=== PATIENT | male | born 1945 | race Caucasian/White ===

== ENCOUNTER 2019-07-17 09:18 | Outpatient (CLI) | payer OTHER, SELFPAY ==
--- NOTE | 2019-07-17 09:24 | MR_ITS ---
WS: [id number] MRI LUMBAR SPINE NONCONTRAST TECHNIQUE: Sagittal T1, T2 and STIR imaging. Axial T1 and T2 imaging. CLINICAL INFORMATION: LEFT SCIATICA, WORSENING SCIATICA COMPARISON: MRI October 04, 2017 FINDINGS: Mild lumbar curve. No acute compression. Pedicle screw fixation L3-S1. Interbody fusion L3-L4, L4-L5. Endplate edema likely due to degenerative changes at L2-3. This is progressed since 2018 with progre ssed disc desiccation at this level. L1-L2: Mild disc bulging with osteophytic ridging. Narrowing of the right subarticular recess. Mild c entral canal stenosis. Mild facet arthropathy. Moderate right and mild left foraminal narrowing. L2-L3: Disc desiccation. Disc bulging with osteophytic ridging and moderate facet arthropathy. Ligame nt flavum hypertrophy. Moderate central canal stenosis. Moderate bilateral foraminal narrowing. L3-L4: Prior postoperative changes pedicle screw fixation with laminectomy defects. Mild to moderate bilateral foraminal narrowing left greater than right. Spinal canal is patent. L4-L5: Prior postoperative changes pedicle screw fixation with interbody fusion. Spinal canal is marie nt. Mild right foraminal narrowing. L5-S1: Postoperative changes pedicle screw fixation. Spinal canal is patent. Mild bony foraminal narr owing. Central canal stenosis at L2-3 appears less severe compared to 2018. MR/MR lumbar spine wo con* [id number] IMPRESSION: 1. Prior postoperative changes pedicle screw fixation L3-S1 with interbody fus ion grafts. Alignment appears unchanged since 2018. 2. Progressed disc desiccation L2-3 with endplate edema likely degenerative. M oderate central canal stenosis at this level appears slightly improved compared to 2018 3. Mild central canal stenosis L1-2 with impingement right subarticular recess . 4. Pedicle screw fixation L3-S1 with interbody fusion L3-L4 and L4-L5. Decompr essive laminectomies L3-L5. 5. Moderate multilevel bony foraminal narrowing more prominent at right L1-2, bilateral L2-3, right L3-4 and right L4-5.
--- NOTE | 2019-07-17 11:57 | XR_ITS ---
WS: [id number] LUMBAR SPINE TECHNIQUE: 3 views of the lumbar spine CLINICAL INFORMATION: SCIATICA COMPARISON: None. FINDINGS: Moderate spondylitic changes. Mild lumbar curve convex right. Prior postoperative changes pedicle scr ew fixation L3-S1 with interconnecting rods. Interbody fusion L3-L4 and L4-L5. Slight retrolisthesis L2 on L3. Disc space narrowing L1-L2 and L2-L3 with vacuum disc phenomenon. Slight retrolisthesis L1 on L2. Anterior hypertrophic changes lower thoracic and upper lumbar spine. No acute appearing compre ssion fractures. Osteopenia. XR/XR lumbar spine 2-3V* [id number] IMPRESSION: 1. Mild lumbar curve with moderate spondylitic changes. 2. No acute appearing compression fractures. 3. Slight retrolisthesis L1 on L2 and L2 on L3 with vacuum disc phenomenon. 4. Pedicle screw fixation L3-S1 with interbody fusion. Hardware and interconne cting rods appear intact.
== END 2019-07-17 09:19 | disposition home or self-care (01) ==
LOC: RADWPI 09:22
PROVIDERS: Family Provider Internal Medicine; PCP Internal Medicine; Visit Provider Internal Medicine
DX: M54.32 Sciatica, left side (principal); M48.061 Spinal stenosis, lumbar region without neurogenic claudication; M96.1 Postlaminectomy syndrome, not elsewhere classified; Z98.1 Arthrodesis status
CPT/HCPCS: 72100; 72148

== ENCOUNTER → 2020-01-07 09:46 | Outpatient (BNVA) | payer OTHER, SELFPAY | PROVIDERS: Family Provider Internal Medicine; PCP Internal Medicine; Referring Provider Family Medicine; Visit Provider Podiatrist Foot & Ankle Surgery | DX: M79.673 Pain in unspecified foot (principal) | CPT/HCPCS: 73630 ==

== ENCOUNTER → 2020-05-05 09:18 | Outpatient (BNVA) | payer OTHER, SELFPAY | PROVIDERS: Family Provider Internal Medicine; PCP Family Medicine; Visit Provider Anesthesiology Pain Medicine | DX: M54.9 Dorsalgia, unspecified (principal); M47.816 Spondylosis without myelopathy or radiculopathy, lumbar region; M96.1 Postlaminectomy syndrome, not elsewhere classified; M48.061 Spinal stenosis, lumbar region without neurogenic claudication | CPT/HCPCS: 99205 ==

== ENCOUNTER → 2020-05-14 13:49 | Outpatient (BNVA) | payer OTHER, SELFPAY | PROVIDERS: Family Provider Internal Medicine; PCP Family Medicine; Visit Provider Anesthesiology Pain Medicine | DX: M47.816 Spondylosis without myelopathy or radiculopathy, lumbar region (principal); M48.061 Spinal stenosis, lumbar region without neurogenic claudication; M54.9 Dorsalgia, unspecified | CPT/HCPCS: 64493; 64494; 64495; J1040; J3490 ==

== ENCOUNTER → 2020-08-08 09:58 | Outpatient (BNVA) | payer OTHER, SELFPAY | PROVIDERS: Family Provider Internal Medicine; PCP Family Medicine; Visit Provider Anesthesiology Pain Medicine | DX: M54.9 Dorsalgia, unspecified (principal); M47.816 Spondylosis without myelopathy or radiculopathy, lumbar region; M48.061 Spinal stenosis, lumbar region without neurogenic claudication; M96.1 Postlaminectomy syndrome, not elsewhere classified | CPT/HCPCS: 99214 ==

== ENCOUNTER 2020-08-17 10:48 | Inpatient (IN) | payer OTHER, MEDICARE, SELFPAY ==
[2020-08-17 11:11] VITALS: BP 143/89; PULSE 68; RESP 18; TEMP 36.6; O2SAT 95; BMI 35.9
--- NOTE | 2020-08-17 11:37 | W.ED.ABDPA2 ---
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 He has associated nausea and vomiting as well as diarrhea. He denies liver disease, he does not have a history of significant alcohol use. He does not recall if he has been tested for hepatitis C but as far as he knows he does not have a diagnosis of hepatitis C. MD elicited complaint: abdominal pain Onset (ago): day(s) (2) Pain Consistency: constant Location: Diffuse Quality: cramping Radiation: none Migration to: no migration Exacerbating factors: nothing Relieving factors: nothing Associated Symptoms: Reports bloating, change in bowel habits, change in stool character, diarrhea, nausea and vomiting; Denies anorexia, belching, chills, coffee ground emesis, constipation, GI cramping, dyspepsia, dysuria, excessive flatus, fever(s), heartburn, hematochezia, hematuria, hematemesis, fecal incontinence, loose stools, melena, poor appetite and syncope Review of Systems General: Reports: 10 or more systems reviewed and unremarkable except in HPI and below Const: Denies: fever(s) or chills Card: Denies: syncope GI: Reports: nausea, vomiting, diarrhea, bloating, change in bowel habits and change in stool character; Denies: hematemesis, coffee ground emesis, heartburn, constipation, GI cramping, belching, excessive flatus, fecal incontinence, hematochezia or melena : Denies: dysuria or hematuria PFS ED PFSH: Medical History (Updated 08/17/20 @ 21:46 by John Segundo MD, [facility] [place]) Chronic back pain Colon polyps bleeding polyp removed during a colonoscopy in [place], [place] Degenerative joint disease Diverticulosis History of blood clots DVT Left LE / PE History of skin cancer Melanoma -- left shoulder Hypertension Hypothyroidism Surgical History (Updated 08/17/20 @ 16:32 by Tyron Limon MD) History of colonoscopy Last 09/2016 -- diverticulosis History of lumbar laminectomy x 1 History of total knee arthroplasty Bilateral History of umbilical hernia repair Skin cancer (melanoma) Excised from left shoulder Family History Denies family history of Anesthesia complication Bleeding disorder Social History (Updated 08/17/20 @ 16:32 by Tyron Limon MD) Smoking and tobacco status: former smoker Quit status (tobacco): has quit using tobacco Year quit tobacco: 1989 Alcohol intake: never Lives independently: Yes Current occupational status: retired History of recent travel: No Physical Exam Const: COMMON NORMALS: no acute distress, average body habitus, patient oriented x3, no limitations, healthy appearing, alert and well nourished HENMT: COMMON NORMALS: normocephalic, atraumatic and moist oral mucous membranes HEAD & SCALP: normocephalic and atraumatic Neck/C-Spine: COMMON NORMALS: no meningeal signs and no JVD Resp: COMMON NORMALS: normal respiratory effort, No retractions, No use of accessory muscles, clear to auscultation bilaterally and percussion normal AUSCULTATION: clear to auscultation bilaterally PERCUSSION: percussion normal Cardio: COMMON NORMALS: no JVD, regular rate, regular rhythm, S1 normal heart sound present, S2 normal heart sound present, No gallops present (Cardio), No clicks present (Cardio), No murmurs present (Cardio), No rub (Cardio) and Peripheral pulses 2+ throughout RATE: regular rate RHYTHM: regular rhythm HEART SOUNDS: S1 normal heart sound present and S2 normal heart sound present PERIPHERAL PULSES: Peripheral pulses 2+ throughout GI: COMMON NORMALS: Soft to palpation, non-tender, No hepatosplenomegaly present, no masses and no bruits INSPECTION: Yes abdominal distension and Yes central obesity AUSCULTATION: Yes normoactive bowel sounds PALPATION: Yes Soft to palpation and Yes No hepatosplenomegaly present PERCUSSION: dullness to percussion (On the right side of his abdomen) and tympanic to percussion (On the left) Extremity: COMMON NORMALS: normal to inspection, full ROM, capillary refill normal, no calf tenderness and no pedal edema Neuro: COMMON NORMALS: patient oriented x3 SENSORIUM/ORIENTATION: Yes alert MENINGEAL SIGNS: Yes no meningeal signs Skin: COMMON NORMALS: no rashes or lesions noted, no wounds, turgor normal, no jaundice, no petechiae and no mottling GENERAL SKIN EXAM: no rashes or lesions noted and turgor normal Course Reevaluation(s): Reevaluation #1: Discussed his lab and imaging findings with him. Explained that he has small bowel obstruction and he will need to be admitted to the hospital. I advised that usually treatment is nonsurgical with NG tube connected to suction but if that fails he may need surgical intervention. Patient and his voiced understanding and they are in agreement with the plan. Time: 14:25 Consultations: Consultation #1: Discussed the patient with Dr. Limon, surgeon and he advised that we admit the patient to the medical service to address his medical needs and he will consult on the patient. Time: 14:27 Consultation #2: Discussed the patient with Dr. Salter, hospitalist who kindly accepted the patient to his service. Time: 14:29 Vital Signs: Vital signs: Vital Signs Temperature 99.0 F 08/17/20 20:00 Pulse Rate 68 08/17/20 20:00 Respiratory Rate 18 08/17/20 20:00 Blood Pressure 117/80 08/17/20 20:00 Pulse Oximetry 96 08/17/20 20:00 MDM - Abdominal Pain MDM Narrative: Medical decision making narrative: 74-year-old male who presented to the emergency department with complaints of abdominal pain and distention evaluation in the emergency department is consistent with small bowel obstruction. An NG tube was placed and large amounts of brownish material was drained from his bowel while in the emergency department. He is admitted to the hospital for further evaluation and management. Medical Records: Attestation: I reviewed the patient's medical records. Lab Data: Attestation: I reviewed the patient's lab results. Labs: Lab Results 08/17/20 08/17/20 08/17/20 Range/Units 11:54 11:54 11:56 WBC 6.5 (4.0-10.0) 10^3/ uL RBC 4.67 (4.1-5.3) 10^6/u L Hgb 14.8 (11.7-16.6) g/dL Hct 45.4 (42.0-52.0) % MCV 97.2 H (80-94) fL MCH 31.7 (28.0-34.0) pg MCHC 32.6 (30.0-36.0) g/dL RDW 12.8 (12.1-15.1) % Plt Count 203 (130-400) 10^3/c mm MPV 9.8 (7.4-10.4) fL Neut % (Auto) 78.0 % Lymph % (Auto) 12.9 % Caldwell % (Auto) 8.1 % Eos % (Auto) 0.5 % Baso % (Auto) 0.2 % Neut # (Auto) 5.08 (1.8-7.7) 10^3/u L Lymph # (Auto) 0.8 (0.8-4.8) 10^3/u L Caldwell # (Auto) 0.5 (0.2-0.9) 10^3/u L Eos # (Auto) 0.0 (0.0-0.8) 10^3/u L Baso # (Auto) 0.0 (0.0-0.1) 10^3/u L Nucleated RBC % (a uto) 0 % Nucleated RBCs # 0.0 /100WBC Sodium 132 L (136-145) mmol/L Potassium 4.4 (3.5-5.1) mmol/L Chloride 93 L (98-107) mmol/L Carbon Dioxide 26 (22-29) mmol/L Anion Gap 17.4 (5-19) BUN 15 (8-23) mg/dL Creatinine 0.9 (0.7-1.2) mg/dL GFR Calculation Not Reportable Glucose 141 H (65-115) mg/dL Calculated Osmolal ity 277 L (285-295) mOsm/k g Calcium 9.1 (8.5-10.5) mg/dL Total Bilirubin 0.8 (0.15-1.2) mg/dL AST 22 (0-40) U/L ALT 19 (0-41) U/L Alkaline Phosphata se 60 (40-130) IU/L Total Protein 6.9 (6.6-8.7) g/dL Albumin 4.4 (3.5-5.2) g/dL Globulin 2.5 (1.3-4.6) g/dL Lipase 45 (13-60) U/L Urine Color Dark yellow (Yellow) Urine Appearance Clear (CLEAR) Urine pH 6 (5-7) Ur Specific Gravit y 1.020 (1.005-1.030) Urine Protein Trace (Negative) Urine Glucose (UA) Norm (Normal) Urine Ketones Negative (Negative) Urine Blood Neg (Negative) Urine Nitrate Negative (Negative) Urine Bilirubin Neg (Negative) Urine Urobilinogen 1 H (Negative) mg/dL Ur Leukocyte Natalie ase Negative (Negative) Urine RBC None (0-2) /hpf Urine WBC None (0-5) /hpf Ur Squamous Epith Cells None (0-5) /hpf Amorphous Sediment Not Reportable Urine Bacteria 1+ H (NONE) /hpf Urine Mucus 2+ /hpf Imaging Data ^: CXR: Attestation: I personally reviewed and interpreted this imaging study as follows: Radiologist's impression: [address] [address] XRay Report Signed Patient: Danny Howard #: [id number] : [id number]#:[id number] Age/Sex: 74 / MADM Date: 08/17/20 Loc: [facility]/Bed: [facility] Attending Dr: Shivani Salter MD Ordering Provider/Ordering MD: John Segundo MD, [facility] [place] Date of Service: 08/17/20 Procedure(s): XR chest 1V portable [id number] Accession Number(s): [id number] Report Number: [id number] PROCEDURE INFORMATION: Exam: XR Chest Exam date and time: 08/17/2020 2:47 PM Age: 74 years old Clinical indication: Device placement; Ng tube; Patient HX: Ng placement; Additional info: Post ng insertion TECHNIQUE: Imaging protocol: XR of the chest. Views: 1 view. COMPARISON: CR Chest 2 views* [id number] 02/17/2018 12:45 PM FINDINGS: Tubes, catheters and devices: NG tube tip in the stomach. Lungs: Unremarkable. No consolidation. Pleural spaces: Unremarkable. No pleural effusion. No pneumothorax. Heart/Mediastinum: Unremarkable. No cardiomegaly. Bones/joints: No acute findings. XR/XR chest 1V portable [id number] IMPRESSION: NG tube tip in the stomach. Dictated By:Ethan Elkins MD Signed By:Ethan Elkins MDSigned Date/Time:08/17/201515 DD/ 14 CT Abd/Pel: Attestation: I personally reviewed and interpreted this imaging study as follows: Radiologist's impression: [facility] [address] [facility] [place] [address] CT Scan Report Signed Patient: Danny Howard #: [id number] : 1945cct#:[id number] Age/Sex: 74 / MADM Date: 08/17/20 Loc: [facility]/Bed: Attending Dr: Ordering Provider/Ordering MD: John Segundo MD, [facility] [place] Date of Service: 08/17/20 Procedure(s): CT abdomen pelvis w con* [id number] Accession Number(s): [id number] Report Number: [id number] PROCEDURE INFORMATION: Exam: CT Abdomen And Pelvis With Contrast Exam date and time: 08/17/2020 11:43 AM Age: 74 years old Clinical indication: Abdominal pain; Generalized; Prior surgery; Surgery date: 6+ months; Surgery type: L-sp, hernia; Patient HX: C/O abd pain distention and n/v/d; Additional info: Abdominal distension, pain, vomiting TECHNIQUE: Imaging protocol: Computed tomography of the abdomen and pelvis with contrast. Radiation optimization: All CT scans at this facility use at least one of these dose optimization techniques: automated exposure control; mA and/or kV adjustment per patient size (includes targeted exams where dose is matched to clinical indication); or iterative reconstruction. Contrast material: OMNI 300; Contrast volume: 95 ml; Contrast route: INTRAVENOUS (IV); COMPARISON: No relevant prior studies available. RADIATION DOSE METRICS: Total DLP (mGy-cm): 1804.42 FINDINGS: Liver: No mass. Gallbladder and bile ducts: Unremarkable. No ductal dilation. Pancreas: Normal. No ductal dilation. Spleen: Normal. No splenomegaly. Adrenal glands: Normal. No mass. Kidneys and ureters: Normal. No hydronephrosis. Stomach and bowel: Prominent proximal small bowel dilatation, the distal small bowel is nondistended. Transition to nondistended small bowel is seen in the right lower abdomen. Colonic diverticulosis without acute diverticulitis. No colonic obstruction. Appendix: No evidence of appendicitis. Intraperitoneal space: Minimal free fluid, no pneumoperitoneum or abscess. Vasculature: No abdominal aortic aneurysm. Lymph nodes: No significant adenopathy. Urinary bladder: Unremarkable as visualized. Reproductive: Unremarkable as visualized. Bones/joints: Postoperative change in the lower lumbar spine status post fusion, metallic artifact. Soft tissues: Unremarkable. CT/CT abdomen pelvis w con* [id number] IMPRESSION: Moderate to high-grade partial small bowel obstruction, transition in the right lower abdomen. Minimal ascites. Radiation Dose CTDIVOL = (mGy): DLP = 1804.42 (mGy-cm) Dictated By:Ethan Elkins MD Signed By:Ethan Elkins MDSigned Date/Time:08/17/201416 DD/ 14 Discharge Plan Discharge Patient Disposition: Admitted As Inpatient Admit Provider: Shivani Salter Clinical Impression: Small bowel obstruction Condition: Stable Coding Level of Care Code ED Auto Phone Installer for Chg Fwd Exam Comprehensive
[2020-08-17 12:11] LABS: Basophils % 0.2 %; Eosinophils % 0.5 %; Hematocrit 45.4 % (42.0-52.0); Hemoglobin 14.8 g/dL (11.7-16.6); Lymphocytes # 0.8 10^3/uL (0.8-4.8); Lymphocytes % 12.9 %; Mean Corpuscular HGB Conc 32.6 g/dL (30.0-36.0); Mean Corpuscular Hemoglobin 31.7 pg (28.0-34.0); Mean Corpuscular Volume 97.2 fL (80-94); Mean Platelet Volume 9.8 fL (7.4-10.4); Monocytes # 0.5 10^3/uL (0.2-0.9); Monocytes % 8.1 %; Neutrophils # 5.08 10^3/uL (1.8-7.7); Nucleated Red Blood Cells % 0 %; Platelet Count 203 10^3/cmm (130-400); Red Blood Count 4.67 10^6/uL (4.1-5.3); Red Cell Distribution Width 12.8 % (12.1-15.1); White Blood Count 6.5 10^3/uL (4.0-10.0)
[2020-08-17 12:16] LABS: Add Urine Microscopic? YES; Bilirubin Urine Neg (Negative); Blood Urine Neg (Negative); Glucose Urine UA Norm (Normal); Ketones Urine Negative (Negative); Leukocyte Esterase Urine Negative (Negative); Nitrate Urine Negative (Negative); Protein Urine Trace (Negative); Urine Appearance Clear (CLEAR); Urine Color Dark Yellow (Yellow); Urobilinogen Urine 1 mg/dL (Negative); pH Urine 6 (5-7)
[2020-08-17 12:25] LABS: Bacteria Urine 1+ /hpf; Mucus Urine 2+ /hpf
[2020-08-17 12:26] LABS: Add Urine Culture? No
[2020-08-17 12:35] LABS: Alanine Aminotransferase 19 U/L (0-41); Albumin Level 4.4 g/dL (3.5-5.2); Alkaline Phosphatase 60 IU/L (40-130); Anion Gap 17.4 (5-19); Aspartate Amino Transferase 22 U/L (0-40); Blood Urea Nitrogen 15 mg/dL (8-23); Calcium 9.1 mg/dL (8.5-10.5); Carbon Dioxide 26 mmol/L (22-29); Chloride 93 mmol/L (98-107); Globulin 2.5 g/dL (1.3-4.6); Glucose 141 mg/dL (65-115); Lipase 45 U/L (13-60); Osmolality Calculated 277 mOsm/kg (285-295); Potassium 4.4 mmol/L (3.5-5.1); Sodium 132 mmol/L (136-145); Total Bilirubin 0.8 mg/dL (0.15-1.2); Total Protein 6.9 g/dL (6.6-8.7)
[2020-08-17] MEDS: ondansetron 2 mg/ML SDV 2 mL 4 MG IVP (12:58)
[2020-08-17 13:09] VITALS: BP 121/89; PULSE 73; RESP 18; O2SAT 95
--- NOTE | 2020-08-17 13:18 | PC.PHAR ---
I AM WAITING FOR A MEDICATION LIST FROM THE [facility] RIGHT NOW. THE PT TRIED TO REMEMBER WHAT HE TAKES, BUT HE CANNOT REMEMBER THE NAME OF ONE OF HIS BLOOD PRESSURE MEDICATIONS. I WILL KEEP LOOKING FOR THE LIST. AT THIS TIME I AM GOING BY PT'S WORK, MEDICATION HISTORY AND PHARMACY LIST.
[2020-08-17] MEDS: iohexol 300 mg/mL 100 mL Btl IV (13:33)
[2020-08-17 14:09] VITALS: BP 140/85; PULSE 75; RESP 18; O2SAT 94
--- NOTE | 2020-08-17 14:46 | XRR_ITS ---
PROCEDURE INFORMATION: Exam: XR Chest Exam date and time: 08/17/2020 2:47 PM Age: 74 years old Clinical indication: Device placement; Ng tube; Patient HX: Ng placement; Additional info: Post ng insertion TECHNIQUE: Imaging protocol: XR of the chest. Views: 1 view. COMPARISON: CR Chest 2 views* [id number] 02/17/2018 12:45 PM FINDINGS: Tubes, catheters and devices: NG tube tip in the stomach. Lungs: Unremarkable. No consolidation. Pleural spaces: Unremarkable. No pleural effusion. No pneumothorax. Heart/Mediastinum: Unremarkable. No cardiomegaly. Bones/joints: No acute findings. XR/XR chest 1V portable [id number] IMPRESSION: NG tube tip in the stomach.
--- NOTE | 2020-08-17 15:09 | PM.HP ---
Providers/Chief Complaint Admitting Physician: Shivani Salter Primary Care Provider: Jessica Zepeda MD Chief Complaint: ABD PAIN History of Present Illness 74-year-old male with a past medical history significant for chronic back pain, hypertension, hypothyroidism and prior PE/DVT in 04/2017 isolated incident on chronic Eliquis presented to the hospital with abdominal pain. Patient was initially seen with abdominal discomfort on 08/15/2020 by primary care physician during which time he was suspected to have gastroenteritis. He was started on Zofran. Continued to worsen noting multiple episodes of nausea and vomiting. Was seen again by primary care physician earlier today at which point he was directed to the emergency room for further work up. Upon arrival to emergency room his initial laboratory workup showed a WBC of 6.5, hemoglobin of 14.8, hematocrit of 45.4 and a platelet count of 203. sodium 132, potassium 4.4, chloride 93, bicarb 26, BUN 15 and creatinine of 0.9. AST 22, ALT 19 and alkaline phosphatase of 60. lipase 45. urinalysis was negative. Imaging studies included a CT abdomen pelvis which showed moderate to high-grade partial small-bowel obstruction with transition in the right lower abdomen in addition to mild ascites. Due to this a NG tube was placed after which he was noted to have significant output. General surgery was consulted. Review of Systems General: Reports: 10 or more systems reviewed and unremarkable except in HPI and below Medications/Allergies Home Medications Medication Instructions Recorded Confirmed Last Taken Type Custom Orthotics #1 ea 01/07/20 08/17/20 Unknown Rx apixaban 2.5 mg tablet 2.5 mg PO BID 01/07/20 08/17/20 08/17/20 History atenolol 50 mg tablet 50 mg PO DAILY 01/07/20 08/17/20 08/17/20 History Fiber (psyllium husk) 1 tab PO DAILY 08/17/20 08/17/20 08/09/20 History Organic Green Superfoods See Rx Instructions .ROUTE .COMPLEX 08/17/20 08/17/20 08/16/20 History Power Beets 1 tab PO DAILY 08/17/20 08/17/20 08/16/20 History amitriptyline 1 tab PO BEDTIME 08/17/20 08/17/20 08/14/20 History ascorbic acid-collagen [Collagen 1 cap PO DAILY 08/17/20 08/17/20 08/16/20 History Plus Vitamin C] garlic 2,000 mg PO DAILY 08/17/20 08/17/20 08/16/20 History levothyroxine 75 mcg PO DAILY 08/17/20 08/17/20 08/17/20 History Allergies Allergy/AdvReac Type Severity Reaction Status Date / Time No Known Allergies Allergy Verified 08/17/20 09:17 PFSH Acute PFSH: Medical History (Updated 08/17/20 @ 16:35 by Tyron Limon MD) Chronic back pain Colon polyps bleeding polyp removed during a colonoscopy in [place], [place] Degenerative joint disease Diverticulosis History of blood clots DVT Left LE / PE History of skin cancer Melanoma -- left shoulder Hypertension Hypothyroidism Surgical History (Updated 08/17/20 @ 16:32 by Tyron Limon MD) History of colonoscopy Last 09/2016 -- diverticulosis History of lumbar laminectomy x 1 History of total knee arthroplasty Bilateral History of umbilical hernia repair Skin cancer (melanoma) Excised from left shoulder Family History Denies family history of Anesthesia complication Bleeding disorder Social History (Updated 08/17/20 @ 16:32 by Tyron Limon MD) Smoking and tobacco status: former smoker Quit status (tobacco): has quit using tobacco Year quit tobacco: 1989 Alcohol intake: never Lives independently: Yes Current occupational status: retired History of recent travel: No Vitals/I&O/Wt Last Vital Signs Temp 97.9 F 08/17/20 11:11 Pulse 75 08/17/20 14:09 Resp 18 08/17/20 14:09 BP 140/85 08/17/20 14:09 Pulse Ox 94 08/17/20 14:09 Weight last 48 hrs Weight 113.398 kg Physical Exam Narrative: EXAM NARRATIVE: General: Alert, awake, oriented x3 HEENT : NG in place CVS - RRR, No obvious murmur Chest- Non-labored respiration ABD: Slightly distended. Ext: No edema Data : 08/17/20 11:54 08/17/20 11:54 A&P Assessment and plan (1) Small bowel obstruction: Status: Acute Partial SBO - General surgery on consult - CT Abd/pelvis noted - NG placed to LIS - NPO - Zofran PRN - Pain control - Bowel rest Hx of DVT/PE - Noted in 04/2017 - Isolated incident - Eliquis current held - SCDs ordered - Per sx - started on heparin 5000 units q8hr - Holding full dose for possible anticipated sx Hypertension - Hydralazine IV PRN Hypothyroidism - Hold replacement until resumed on oral intake GI ppx - Pepcid 20 mg IV BID DVT ppx - SCDs - Heparin 5000 units q8hr Attestations Medical Necessity Statement*: Will require > 2 midnight stay in hospital for eval and treatment of partial SBO req gastric decompression Time Spent in Patient Care: Greater than 35 minutes (>than 50% of time spent in counselling and/or direct pt care on unit). Coding Level of Care Code Acute Drilling Rig Operator for Chg Fwd Diagnoses Small bowel obstruction K56.609
--- NOTE | 2020-08-17 15:55 | PC.NURSE ---
Pt to room via bed from ER.
[2020-08-17 16:00] VITALS: BP 131/88; PULSE 66; RESP 18; TEMP 37; O2SAT 92
[2020-08-17] MEDS: dextrose 5%-sod chloride 0.45% 1,000 ML 50 ML IV (16:23)
[2020-08-17] MEDS: famotidine 20 mg/2 mL INJ IVP (16:23)
--- NOTE | 2020-08-17 16:23 | PM.CONSULT ---
Providers/Reason For Consult Consulting Physican/Specialty*: General Surgery Tyron Limon MD Reason for Consult*: Small bowel obstruction. Attending Physician: Shivani Salter Primary Care Provider: Jessica Zepeda MD History of Present Illness History of Present Illness Danny Howard is a 74 year old male who says he was in his normal state of health until 2 days ago when he developed some bloating and excessive belching. He developed bandlike abdominal pain across his mid abdomen and this was shortly associated with nausea and multiple episodes of vomiting. He vomited a few times on the first day of symptoms but apparently vomited quite a bit more within the past 24 hours. He has not eaten in 2 days. He has not seen any evidence of hematemesis. He says he had normal bowel movements yesterday but has not had a bowel movement since. He also noticed that since yesterday he has not been passing much in the way of flatus. He came to the emergency room and a CAT scan showed changes consistent with a small bowel obstruction. A nasogastric tube was inserted and by his own report drained perhaps 1.5 quarts. He says he feels better. The patient denies any history of this happening in the past. Review of Systems Const: Denies: fever(s) GI: Reports: abdominal pain, nausea and vomiting; Denies: hematemesis or change in bowel habits Musc: Reports: back pain (Chronic) Meds/Allergies Home Medications and Allergies Home Medications Medication Instructions Recorded Confirmed Last Taken Type Custom Orthotics #1 ea 01/07/20 08/17/20 Unknown Rx apixaban 2.5 mg tablet 2.5 mg PO BID 01/07/20 08/17/20 08/17/20 History atenolol 50 mg tablet 50 mg PO DAILY 01/07/20 08/17/20 08/17/20 History Fiber (psyllium husk) 1 tab PO DAILY 08/17/20 08/17/20 08/09/20 History Organic Green Superfoods See Rx Instructions .ROUTE .COMPLEX 08/17/20 08/17/20 08/16/20 History Power Beets 1 tab PO DAILY 08/17/20 08/17/20 08/16/20 History amitriptyline 1 tab PO BEDTIME 08/17/20 08/17/20 08/14/20 History ascorbic acid-collagen [Collagen 1 cap PO DAILY 08/17/20 08/17/20 08/16/20 History Plus Vitamin C] garlic 2,000 mg PO DAILY 08/17/20 08/17/20 08/16/20 History levothyroxine 75 mcg PO DAILY 08/17/20 08/17/20 08/17/20 History Allergies Allergy/AdvReac Type Severity Reaction Status Date / Time No Known Allergies Allergy Verified 08/17/20 09:17 PFSH Acute PFSH: Medical History (Updated 08/17/20 @ 16:35 by Tyron Limon MD) Chronic back pain Colon polyps bleeding polyp removed during a colonoscopy in [place], [place] Degenerative joint disease Diverticulosis History of blood clots DVT Left LE / PE History of skin cancer Melanoma -- left shoulder Hypertension Hypothyroidism Surgical History (Updated 08/17/20 @ 16:32 by Tyron Limon MD) History of colonoscopy Last 09/2016 -- diverticulosis History of lumbar laminectomy x 1 History of total knee arthroplasty Bilateral History of umbilical hernia repair Skin cancer (melanoma) Excised from left shoulder Family History (Reviewed 08/17/20 @ 11:44 by John Segundo MD, [facility] [place] Denies family history of Anesthesia complication Bleeding disorder Social History (Updated 08/17/20 @ 16:32 by Tyron Limon MD) Smoking and tobacco status: former smoker Quit status (tobacco): has quit using tobacco Year quit tobacco: 1989 Alcohol intake: never Lives independently: Yes Current occupational status: retired History of recent travel: No Vitals/I&O/Wt Last Vital Signs Temp 97.9 F 08/17/20 11:11 Pulse 75 08/17/20 14:09 Resp 18 08/17/20 14:09 BP 140/85 08/17/20 14:09 Pulse Ox 94 08/17/20 14:09 Weight last 48 hrs Weight 250 lb Physical Exam Narrative: EXAM NARRATIVE: The patient was encountered in his hospital room. He is sitting in a chair with a nasogastric tube in place, but it is not hooked to suction (he just came out from the emergency room). He does not appear to be in any distress. The pupils seem equal. No carotid bruits are heard. The lungs are clear. The heart seems regular. The abdomen is obese and reveals few bowel sounds. He has some very mild scattered tenderness. No obvious masses are palpated. The extremities reveal no edema. Neurologically the patient appears to be grossly intact. Data Imaging^: CT Abd/Pel: Radiologist's impression: CT abdomen/pelvis 08/17/2020 IMPRESSION: Moderate to high-grade partial small bowel obstruction, transition in the right lower abdomen. Minimal ascites. A&P Assessment and plan (1) Small bowel obstruction: The patient feels much better since the nasogastric tube was inserted. CT reviewed. I agree with the assessment of a small bowel obstruction. To me, the transition point appears to be in the right mid abdomen. This seems to be well away from where the patient had previous surgery at the umbilicus, which is the only abdominal procedure he reports historically. I discussed small bowel obstruction with the patient in some detail including the most common causes. Conservative measures including the nasogastric tube were discussed and explained. The patient seems to understand and is agreeable with the current plan. Subcutaneous heparin. Chloraseptic spray as needed for throat discomfort. Status: Acute Consult Attestations Medical Necessity Statement: See admitting service's notation. Coding Level of Care Code Acute Singeing Torch Operator for [facility] Fwd Diagnoses Small bowel obstruction K56.609
[2020-08-17] MEDS: heparin 5,000 unit/mL INJ 1 mL 5000 UNIT SUBCUT (18:09)
--- NOTE | 2020-08-17 19:10 | PC.NURSE ---
End of Shift Summary Pt has had minimal output from NG tube-- gastric content in tubing but none in canister. Resting in bed with HOB 30 degrees. No needs at this time. Bedside report given to MIKA Wagoner.
[2020-08-17 20:00] VITALS: BP 117/80; PULSE 68; RESP 18; TEMP 37.2; O2SAT 96
[2020-08-18] VITALS: BP 110/70; PULSE 66; RESP 18; TEMP 36.3; O2SAT 95
[2020-08-18] MEDS: heparin 5,000 unit/mL INJ 1 mL 5000 UNIT SUBCUT ×2 (01:11→08:23)
[2020-08-18] MEDS: famotidine 20 mg/2 mL INJ IVP (03:21)
[2020-08-18 04:00] VITALS: BP 116/78; PULSE 63; RESP 18; TEMP 36.5; O2SAT 96
[2020-08-18 07:50] VITALS: BP 126/87; PULSE 71; RESP 18; TEMP 36.5; O2SAT 95
[2020-08-18 08:03] LABS: Basophils % 0.4 %; Eosinophils # 0.1 10^3/uL (0.0-0.8); Eosinophils % 2.1 %; Hematocrit 42.5 % (42.0-52.0); Hemoglobin 13.9 g/dL (11.7-16.6); Lymphocytes # 1.4 10^3/uL (0.8-4.8); Lymphocytes % 28.4 %; Mean Corpuscular HGB Conc 32.7 g/dL (30.0-36.0); Mean Corpuscular Hemoglobin 31.4 pg (28.0-34.0); Mean Corpuscular Volume 96.2 fL (80-94); Mean Platelet Volume 10.7 fL (7.4-10.4); Monocytes # 0.7 10^3/uL (0.2-0.9); Monocytes % 14.1 %; Neutrophils # 2.64 10^3/uL (1.8-7.7); Neutrophils % 54.6 %; Nucleated Red Blood Cells % 0 %; Platelet Count 196 10^3/cmm (130-400); Red Blood Count 4.42 10^6/uL (4.1-5.3); Red Cell Distribution Width 12.8 % (12.1-15.1); White Blood Count 4.8 10^3/uL (4.0-10.0)
[2020-08-18 08:18] LABS: Alanine Aminotransferase 18 U/L (0-41); Albumin Level 4.1 g/dL (3.5-5.2); Alkaline Phosphatase 55 IU/L (40-130); Aspartate Amino Transferase 18 U/L (0-40); Blood Urea Nitrogen 11 mg/dL (8-23); Calcium 8.8 mg/dL (8.5-10.5); Carbon Dioxide 28 mmol/L (22-29); Chloride 98 mmol/L (98-107); Globulin 2.9 g/dL (1.3-4.6); Glucose 110 mg/dL (65-115); Osmolality Calculated 284 mOsm/kg (285-295); Sodium 137 mmol/L (136-145); Total Bilirubin 0.6 mg/dL (0.15-1.2)
--- NOTE | 2020-08-18 09:35 | PC.NURSE ---
Called to pt room. Pt had accidentally pulled NGT out while walking to bathroom. Dr. Limon notified. orders to leave NGT out. will monitor
--- NOTE | 2020-08-18 10:22 | PM.PN ---
Subjective Subjective: Interval history: The patient had a very large bowel movement last night and started passing flatus at that time. He was getting out of bed to walk this morning and accidentally pulled out his own nasogastric tube. I instructed nursing to leave it out for now. The patient says he is feeling back to normal. Vitals/I&O/Wt Last Vital Signs Temp 97.7 F 08/18/20 07:50 Pulse 71 08/18/20 07:50 Resp 18 08/18/20 07:50 BP 126/87 08/18/20 07:50 Pulse Ox 95 08/18/20 07:50 08/17/20 08/18/20 08/18/20 22:59 06:59 14:59 Output Total 600 / 1550 950 / 1550 Balance -600 / -1550 -950 / -1550 Weight last 48 hrs Weight 252 lb 12.8 oz Weight 250 lb Physical Exam Narrative: EXAM NARRATIVE: Bowel sounds are present. He has very mild tenderness that remains. Data : 08/18/20 06:02 08/18/20 06:02 A&P Assessment and plan (1) Small bowel obstruction: Clinically seems to have resolved. I am going to start a clear liquid diet. If the patient tolerates oral intake I think he can safely be discharged. Status: Acute Attestations Medical Necessity Statement*: See admitting service's notation. Coding Level of Care Code Acute Director Regulatory Compliance for Alonso Turner Diagnoses Small bowel obstruction K56.609
--- NOTE | 2020-08-18 10:42 | P.DS_ITS ---
Discharge Providers Date of Admission: 08/17/20 14:32 Date of Discharge: August 18, 2020 Attending Provider at Admission: Shivani Salter Attending Provider at Discharge: Chris Andrews Primary Care Provider: Jessica Zepeda MD Diagnoses at Discharge Discharge Diagnosis (1) Small bowel obstruction: Status: Acute Reason for Visit Reason for Visit: ABD PAIN Hospital Course Hospital Course 74-year-old gentleman with chronic back pain, HTN, hypothyroidism, history of PE/DVT, was admitted and treated due to bone pain, with finding of small bowel obstruction visualized on CT abdomen pelvis. He was treated conservatively with NG tube, bowel rest, was evaluated by surgery. He had a large bowel movement last night. Passing flatus. No abdominal pain. He feels hungry, and is ready to advance diet. Given trial of clears prior to discharge. Discussed with him going forward maintenance of smaller meals spread throughout the day to reduce the chance of additional episodes. Discussed concerning symptoms which should prompt him to seek medical attention without delay. Physical Exam Const: COMMON NORMALS: no acute distress, patient oriented x3 and alert GENERAL APPEARANCE: cooperative and comfortable ORIENTATION/CONSCIOUSNESS: Yes awake HENMT: COMMON NORMALS: oropharynx normal Neck/C-Spine: COMMON NORMALS: no JVD Resp: COMMON NORMALS: normal respiratory effort and clear to auscultation bilaterally AUSCULTATION: clear to auscultation bilaterally Cardio: COMMON NORMALS: no JVD, regular rhythm, S1 normal heart sound present, S2 normal heart sound present and No murmurs present (Cardio) RHYTHM: regular rhythm HEART SOUNDS: S1 normal heart sound present and S2 normal heart sound present GI: COMMON NORMALS: Normal to inspection, nondistended, normoactive bowel sounds present (large), Soft to palpation and non-tender PALPATION: Yes Soft to palpation Extremity: COMMON NORMALS: no joint enlargement GENERAL: Yes edema (trace) Neuro: COMMON NORMALS: patient oriented x3 and moves all extremities SENSORIUM/ORIENTATION: Yes alert Skin: COMMON NORMALS: no rashes or lesions noted GENERAL SKIN EXAM: no rashes or lesions noted Discharge Data Data Completed and Pending: Completed Studies During Hospitalization Category Date Time Status CT abdomen pelvis w con* [id number] Urge nt Cat Scan 08/17/20 11:36 Completed X[place] chest 1[place] [id number] Stat Exams 08/17/20 14:46 Completed Labs from last 24 hours 08/18/20 08/18/20 08/17/20 06:02 06:02 11:56 WBC 4.8 RBC 4.42 Hgb 13.9 Hct 42.5 MCV 96.2 H MCH 31.4 MCHC 32.7 RDW 12.8 Plt Count 196 MPV 10.7 H Neut % (Auto) 54.6 Lymph % (Auto) 28.4 [place] % (Auto) 14.1 Eos % (Auto) 2.1 Baso % (Auto) 0.4 Neut # (Auto) 2.64 Lymph # (Auto) 1.4 [place] # (Auto) 0.7 Eos # (Auto) 0.1 Baso # (Auto) 0.0 Nucleated RBC % (a uto) 0 Nucleated RBCs # 0.0 Sodium 137 Potassium 4.0 Chloride 98 Carbon Dioxide 28 Anion Gap 15.0 BUN 11 Creatinine 0.8 GFR Calculation Not Reportable Glucose 110 Calculated Osmolal ity 284 L Calcium 8.8 Total Bilirubin 0.6 AST 18 ALT 18 Alkaline Phosphata se 55 Total Protein 7.0 Albumin 4.1 Globulin 2.9 Lipase Urine Color Dark yellow Urine Appearance Clear Urine pH 6 Ur Specific Gravit y 1.020 Urine Protein Trace Urine Glucose (UA) Norm Urine Ketones Negative Urine Blood Neg Urine Nitrate Negative Urine Bilirubin Neg Urine Urobilinogen 1 H Ur Leukocyte Natalie ase Negative Urine RBC None Urine WBC None Ur Squamous Epith Cells None Amorphous Sediment Not Reportable Urine Bacteria 1+ H Urine Mucus 2+ 08/17/20 08/17/20 11:54 11:54 WBC 6.5 RBC 4.67 Hgb 14.8 Hct 45.4 MCV 97.2 H MCH 31.7 MCHC 32.6 RDW 12.8 Plt Count 203 MPV 9.8 Neut % (Auto) 78.0 Lymph % (Auto) 12.9 [place] % (Auto) 8.1 Eos % (Auto) 0.5 Baso % (Auto) 0.2 Neut # (Auto) 5.08 Lymph # (Auto) 0.8 [place] # (Auto) 0.5 Eos # (Auto) 0.0 Baso # (Auto) 0.0 Nucleated RBC % (a uto) 0 Nucleated RBCs # 0.0 Sodium 132 L Potassium 4.4 Chloride 93 L Carbon Dioxide 26 Anion Gap 17.4 BUN 15 Creatinine 0.9 GFR Calculation Not Reportable Glucose 141 H Calculated Osmolal ity 277 L Calcium 9.1 Total Bilirubin 0.8 AST 22 ALT 19 Alkaline Phosphata se 60 Total Protein 6.9 Albumin 4.4 Globulin 2.5 Lipase 45 Urine Color Urine Appearance Urine pH Ur Specific Gravit y Urine Protein Urine Glucose (UA) Urine Ketones Urine Blood Urine Nitrate Urine Bilirubin Urine Urobilinogen Ur Leukocyte Natalie ase Urine RBC Urine WBC Ur Squamous Epith Cells Amorphous Sediment Urine Bacteria Urine Mucus Vitals: Last Vital Signs Temp 97.7 F 08/18/20 07:50 Pulse 71 08/18/20 07:50 Resp 18 08/18/20 07:50 BP 126/87 08/18/20 07:50 Pulse Ox 95 08/18/20 07:50 Discharge Plan Discharge Patient Disposition: Home Condition: Stable Prescriptions: Continued Eliquis 2.5 mg tablet 2.5 mg PO BID RF: 0 atenolol 50 mg tablet 50 mg PO DAILY RF: 0 (DME) Custom Orthotics See Rx Instructions .Route .MEDSUPPLY Qty: 1 RF: 0 levothyroxine 75 mcg Tablet 75 mcg PO DAILY RF: 0 garlic Tablet 2,000 mg PO DAILY RF: 0 Collagen Plus Vitamin C 125-740 mg Capsule 1 cap PO DAILY RF: 0 Fiber (psyllium husk) 1 tab PO DAILY RF: 0 Organic Green Superfoods See Rx Instructions .ROUTE .COMPLEX RF: 0 Power Beets 1 tab PO DAILY RF: 0 amitriptyline 1 tab PO BEDTIME RF: 0 Discharge Orders: Discharge Order (Routine); Ordered 08/18/20 Ordered By: Chris Andrews Referrals: Jessica Zepeda MD [Primary Care Provider] - 08/25/20 10:00 am (SBO) Discharge Diet: Advance as tolerated and As Directed Discharge Activity: Increase activity as tolerated Patient Instructions: Abdominal Pain - Adult, Bowel Obstruction (GEN) Discharge Attestations Time Spent in Discharge Care*: greater than 30 min Quality Metrics Clinical Quality Measures During this hospital stay, did patient experience: None Coding Level of Care Code Acute Chg FW DC note Exam Comprehensive Diagnoses Small bowel obstruction K56.609
--- NOTE | 2020-08-18 11:25 | PC.NURSE ---
discharge paper given to pt. pt amblatory and discharged with .
[2020-08-18 11:52] VITALS: BP 126/87; PULSE 71; RESP 18; TEMP 36.5; O2SAT 95
== END 2020-08-18 11:25 | disposition home or self-care (01) | DRG 390 ==
LOC: ER 12:38 → MEDSURG 14:57
PROVIDERS: Physician Assistant; Admitting Provider Hospitalist; Emergency Provider Family Medicine; PCP Family Medicine; Visit Provider Internal Medicine
DX: K56.600 Partial intestinal obstruction, unspecified as to cause (principal); G89.29 Other chronic pain; M54.9 Dorsalgia, unspecified; I10 Essential (primary) hypertension; E03.9 Hypothyroidism, unspecified; Z86.718 Personal history of other venous thrombosis and embolism; Z86.711 Personal history of pulmonary embolism; K57.90 Diverticulosis of intestine, part unspecified, without perforation or abscess without bleeding; Z85.820 Personal history of malignant melanoma of skin; Z96.653 Presence of artificial knee joint, bilateral; Z98.1 Arthrodesis status; Z87.891 Personal history of nicotine dependence; Z79.01 Long term (current) use of anticoagulants
CPT/HCPCS: 12345; 36415; 71045; 74177; 80053; 81001; 83690; 85025; 96372; 96374; 99285; J1644; J2405; J3490; J7799; Q9967

== ENCOUNTER → 2021-01-13 14:18 | Outpatient (BNVA) | payer MEDICARE, SELFPAY | PROVIDERS: PCP Family Medicine; Visit Provider Nurse Practitioner Family | DX: Z20.822 Contact with and (suspected) exposure to COVID-19 (principal) | CPT/HCPCS: 87635 ==

== ENCOUNTER → 2023-01-17 14:04 | Outpatient (BNVA) | payer OTHER, SELFPAY | PROVIDERS: PCP Family Medicine; Visit Provider Dermatology | DX: Z85.820 Personal history of malignant melanoma of skin (principal); Z12.9 Encounter for screening for malignant neoplasm, site unspecified; L57.0 Actinic keratosis; L82.0 Inflamed seborrheic keratosis; L81.4 Other melanin hyperpigmentation; D22.9 Melanocytic nevi, unspecified; L82.1 Other seborrheic keratosis; B02.9 Zoster without complications | CPT/HCPCS: 11102; 11200; 17000; 17003; 99213 ==

== ENCOUNTER → 2023-01-26 09:49 | Outpatient (BNVA) | payer OTHER, SELFPAY | PROVIDERS: PCP Family Medicine; Visit Provider Dermatology | DX: C44.629 Squamous cell carcinoma of skin of left upper limb, including shoulder (principal) | CPT/HCPCS: 11602; 12032 ==

== ENCOUNTER → 2023-02-15 10:30 | Outpatient (BNVA) | payer MEDICARE, SELFPAY | PROVIDERS: PCP Family Medicine; Visit Provider Nurse Practitioner Family | DX: R10.9 Unspecified abdominal pain (principal); N39.0 Urinary tract infection, site not specified; M25.552 Pain in left hip | CPT/HCPCS: 73502; 81000; 87086 ==

== ENCOUNTER 2023-12-20 13:05 | Emergency (ER) | payer OTHER, SELFPAY ==
--- NOTE | 2023-12-20 13:05 | ECG_ITS ---
[facility] Test Date: 2023-12-20 Pat Name: Danny Howard Department: Room: Gender: Male Typist: : [id number] Requested By: Dorothy Ko Order Number: [id number] Lila MD: Jose Oliver M.D. Measurements Intervals Eleanor Rate: 64 P: 53 NH: 181 QRS: -43 QRSD: 93 T: 10 QT: 373 QTc: 386 Interpretive Statements SINUS RHYTHM LEFT AXIS DEVIATION [QRS AXIS < -30] LOW QRS VOLTAGE IN PRECORDIAL LEADS [QRS DEFLECTION < 1.0 mV IN CHEST LEADS] MINIMAL VOLTAGE CRITERIA FOR LVH, CONSIDER NORMAL VARIANT [MEETS CRITERIA IN ONE OF: R(aVL), S(V1), R(V5), R(V5/V6)+S(V1)] POSSIBLE ANTERIOR MYOCARDIAL INFARCTION , PROBABLY OLD [30 ms Q WAVE IN V3/V4, OR R < 0.2 mV IN V4] Compared to ECG 02/23/2019 12:21:45 Low QRS voltage now present Myocardial infarct finding now present Poor R-wave progression no longer present Electronically Signed On 12-20-2023 16:26:36 CDT by Jose Oliver M.D. [email or web address]
--- NOTE | 2023-12-20 13:07 | XR_ITS ---
WS: [id number] Examination: XR chest 1V portable [id number] Reason for Exam: cp Date: December 20, 2023 Comparison: August 17, 2020 Findings: The heart is not grossly enlarged. The mediastinum is not widened. The irwin are not enlarged. There is no pulmonary edema or pleural effusion. There is no dense consolidative change XR/XR chest 1V portable [id number] Impression: No acute lung process is seen.
[2023-12-20 13:12] VITALS: BP 137/89; PULSE 64; RESP 17; TEMP 36.6; O2SAT 98; BMI 35.2
--- NOTE | 2023-12-20 13:33 | ED_ITS ---
HPI - Chest Pain 2 General: Chief Complaint: Chest Pain Stated Complaint: CP [facility] sent Time Seen by Provider: 12/20/23 13:16 History of Present Illness: 78-year-old male presents emergency room complaining of chest discomfort he states he has had this for about 2 weeks. Pain is worse when he takes a deep breath. He is on Eliquis he has a history of DVT PE. He is not tachycardic or tachypneic he is not hypoxic. Associated symptoms: Deny abdominal pain, dyspnea or fever(s) Related Data Home Medications Medication Instructions Recorded Confirmed apixaban 2.5 mg tablet (Eliquis) 2.5 mg PO BID 01/07/20 02/15/23 atenolol 50 mg tablet 50 mg PO DAILY 01/07/20 02/15/23 Fiber (psyllium husk) 1 tab PO DAILY 08/17/20 02/15/23 Power Beets 1 tab PO DAILY 08/17/20 02/15/23 ascorbic acid 125 mg-collagen, 1 cap PO DAILY 08/17/20 02/15/23 hydrolyzed 740 mg capsule (Collagen Plus Vitamin C) garlic 2,000 mg PO DAILY 08/17/20 02/15/23 levothyroxine 75 mcg tablet 75 mcg PO DAILY 08/17/20 02/15/23 turmeric 100 mg-harvey 150 cap PO 02/15/23 02/15/23 mg-olive 50 mg-oreg 150 mg-capryl capsule Previous Rx's Medication Instructions Recorded Custom Orthotics #1 ea 01/07/20 valacyclovir 1 gram tablet 1,000 mg PO Q8H 7 days #21 tabs 07/20/22 cefpodoxime 200 mg tablet 200 mg PO BID 7 days #14 tabs 02/15/23 Allergies Allergy/AdvReac Type Severity Reaction Status Date / Time No Known Allergies Allergy Verified 02/15/23 09:47 Review of Systems 2 Const: Denies: fever(s) or chills Card: Reports: chest pain Resp: Denies: dyspnea GI: Denies: abdominal pain : Denies: dysuria, urinary frequency or urinary urgency Musc: Denies: neck pain or back pain Skin/Breast: Denies: rash PFSH ED 2 PFSH: Medical History History of pulmonary embolism Diverticulosis Colon polyps bleeding polyp removed during a colonoscopy in [place], [place] Degenerative joint disease History of skin cancer Melanoma -- left shoulder Chronic back pain Hypothyroidism Hypertension History of blood clots DVT Left LE / PE Surgical History History of colonoscopy Last 09/2016 -- diverticulosis History of umbilical hernia repair Skin cancer (melanoma) Excised from left shoulder History of total knee arthroplasty Bilateral History of lumbar laminectomy x 1 Family History Denies family history of Anesthesia complication Bleeding disorder Social History Smoking and tobacco/nicotine status: former use of tobacco/nicotine Quit status (tobacco/nicotine): has quit using Year quit tobacco: 1989 Alcohol intake: never Substance/Drug Use: never Lives independently: Yes Current occupational status: retired Physical Exam 2 Const: COMMON NORMALS: no acute distress GENERAL APPEARANCE: cooperative and comfortable ORIENTATION/CONSCIOUSNESS: Yes awake, Yes oriented to person, Yes oriented to place and Yes oriented to time HENMT: COMMON NORMALS: normocephalic, atraumatic and hearing grossly normal bilaterally HEAD & SCALP: normocephalic and atraumatic Chest: OTHER: Chest pain reproducible with palpation across the anterior chest wall Resp: COMMON NORMALS: normal respiratory effort, No retractions, No use of accessory muscles and clear to auscultation bilaterally AUSCULTATION: clear to auscultation bilaterally Cardio: COMMON NORMALS: regular rate, regular rhythm and No murmurs present (Cardio) RATE: regular rate RHYTHM: regular rhythm GI: COMMON NORMALS: Soft to palpation and No hepatosplenomegaly present A USCULTATION: Yes normoactive bowel sounds PALPATION: Yes Soft to palpation, No Tenderness to palpation present (GI), No Guarding due to palpation present (GI) and Yes No hepatosplenomegaly present Extremity: COMMON NORMALS: normal to inspection, capillary refill normal, no clubbing, cyanosis or edema, no calf tenderness and no pedal edema Neuro: SENSORIUM/ORIENTATION: Yes oriented to person, Yes oriented to place and Yes oriented to time Skin: COMMON NORMALS: no rashes or lesions noted GENERAL SKIN EXAM: no rashes or lesions noted Course 2 Vital Signs: Vital signs: Vital Signs Temperature 97.8 F 12/20/23 13:12 Pulse Rate 67 12/20/23 16:23 Respiratory Rate 17 12/20/23 16:23 Blood Pressure 144/86 12/20/23 16:23 Pulse Oximetry 97 12/20/23 16:23 Oxygen Delivery Me thod Room Air 12/20/23 13:12 MDM - Chest Pain Medical Decision Making Chest pain reproducible with palpation across anterior chest he is not tachycardic nor hypoxic. He has been taking his Eliquis regularly chest x-ray normal troponins trending normal EKG did not show acute changes no sign of pneumonia or pneumothorax or widened mediastinum. Will discharge home continue Eliquis. Return if is further problems. At this point given his normal vitals reproducible chest pain and do not believe he has an worsening or acute pulmonary embolism and does not require repeat CTA of the chest. Medical Records I reviewed the patient's medical records. Lab Data I reviewed the patient's lab results. 12/20/23 13:25 12/20/23 13:25 Radiology Impressions Chest X-Ray 12/20/23 13:07 Impression: No acute lung process is seen. Laboratory Results WBC 6.57 10^3/uL (3.29-11.43) 12/20/23 13:25 RBC 4.71 10^6/uL (3.85-5.65) 12/20/23 13:25 Hgb 15.10 g/dL (11.27-16.99) 12/20/23 13:25 Hct 46.9 % (37-53) 12/20/23 13:25 MCV 99.6 fl (82-101) 12/20/23 13:25 MCH 32.1 pg (27-33) 12/20/23 13:25 MCHC 32.2 g/dL (30-55) 12/20/23 13:25 RDW 14.0 % (12.1-15.1) 12/20/23 13:25 Plt Count 196 10^3/cmm (157-399) 12/20/23 13:25 MPV 9.4 fL (7.4-10.4) 12/20/23 13:25 Neut % (Auto) 55.5 % 12/20/23 13:25 Lymph % (Auto) 30.7 % 12/20/23 13:25 [place] % (Auto) 9.4 % 12/20/23 13:25 Eos % (Auto) 3.0 % 12/20/23 13:25 Baso % (Auto) 0.8 % 12/20/23 13:25 Neut # (Auto) 3.64 10^3/uL (1.8-7.7) 12/20/23 13: Lymph # (Auto) 2.0 10^3/uL (0.8-4.8) 12/20/23 13:25 [place] # (Auto) 0.6 10^3/uL (0.2-0.9) 12/20/23 13: Eos # (Auto) 0.2 10^3/uL (0.0-0.8) 12/20/23 13: Baso # (Auto) 0.1 10^3/uL (0.0-0.1) 12/20/23 13: Nucleated RBC % (auto) 0 % 12/20/23 13: Nucleated RBCs # 0.0 /100WBC 12/20/23 13:25 PT 12.90 SECONDS (12.1-14.9) 12/20/23 13: INR 0.95 (0.8-1.2) 12/20/23 13:25 Sodium 134 mmol/L (136-145) L 12/20/23 13:25 Potassium 4.6 mmol/L (3.5-5.1) 12/20/23 13: Chloride 99 mmol/L (98-107) 12/20/23 13:25 Carbon Dioxide 23 mmol/L (22-29) 12/20/23 13:25 Anion Gap 16.6 (5-19) 12/20/23 13:25 BUN 10 mg/dL (8-23) 12/20/23 13:25 Creatinine 0.8 mg/dL (0.7-1.2) 12/20/23 13:25 GFR Calculation Not Reportable 12/20/23 13:25 Glucose 97 mg/dL (65-115) 12/20/23 13:25 Calculated Osmolality 277 mOsm/kg (285-295) L 12/20/23 13:25 Calcium 9.8 mg/dL (8.5-10.5) 12/20/23 13:25 Total Bilirubin 0.5 mg/dL (0.15-1.2) 12/20/23 13:25 AST 35 U/L (0-40) 12/20/23 13:25 ALT 26 U/L (0-41) 12/20/23 13:25 Alkaline Phosphatase 84 U/L (40-130) 12/20/23 13:25 Troponin T Baseline 18 ng/L (0-15) H 12/20/23 13:25 Troponin T 120 Minute 16.46 ng/L (0-15) H 12/20/23 15:12 Delta Troponin T -1.54 ABS# (0-10) L 12/20/23 15:12 Total Protein 8.1 g/dL (6.6-8.7) 12/20/23 13:25 Albumin 4.4 g/dL (3.5-5.2) 12/20/23 13:25 Globulin 3.7 g/dL (1.3-4.6) 12/20/23 13:25 Lipase 51 U/L (13-60) 12/20/23 13:25 All radiology interpretation(s) finalized by discharge Discharge Plan Discharge Patient Disposition: Home Clinical Impression: Pain, chest wall Condition: Stable Prescriptions: No Action Eliquis 2.5 mg tablet 2.5 mg PO BID atenolol 50 mg tablet 50 mg PO DAILY (DME) Custom Orthotics See Rx Instructions .Route .MEDSUPPLY Qty: 1 0RF Rx Instructions: Custom made by SAMMY&O [id number] 100 mg-150 mg- 50 mg-150 mg capsule PO cefpodoxime 200 mg tablet 200 mg PO BID 7 Days Qty: 14 0RF Rx Instructions: must administer with a meal/food valacyclovir 1 gram tablet 1,000 mg PO Q8H 7 Days Qty: 21 0RF levothyroxine 75 mcg Tablet 75 mcg PO DAILY garlic Tablet 2,000 mg PO DAILY Collagen Plus Vitamin C 125-740 mg Capsule 1 cap PO DAILY Fiber (psyllium husk) 1 tab PO DAILY Power Beets 1 tab PO DAILY Discharge Orders: Discharge ED (Routine); Ordered 12/20/23 Ordered By: Marcus Castano Referrals: Jessica Zepeda MD [Primary Care Provider] - Patient Instructions: Opioid Safety, Pain Management Activity Restrictions/Additional Instructions: Thank you for choosing [employer] for your healthcare needs today. It is very important that you follow up as instructed or that you return to the Emergency Department should you have concerns or if your condition changes or worsens in any way. You were seen in the emergency room for complaint of chest pain. Your chest discomfort was reproducible to palpation across chest wall vital signs did not show any sign of tachycardia or hypoxia. Continue to take your Eliquis as previously prescribed. Chest x-ray cardiac enzymes and EKG did not show any acute changes. Coding Level of Care Code ED Behavioral Pediatrician for Alonso Turner
[2023-12-20 13:35] LABS: Basophils # 0.1 10^3/uL (0.0-0.1); Basophils % 0.8 %; Eosinophils # 0.2 10^3/uL (0.0-0.8); Hematocrit 46.9 % (37-53); Lymphocytes % 30.7 %; Mean Corpuscular HGB Conc 32.2 g/dL (30-55); Mean Corpuscular Hemoglobin 32.1 pg (27-33); Mean Corpuscular Volume 99.6 fl (82-101); Mean Platelet Volume 9.4 fL (7.4-10.4); Monocytes # 0.6 10^3/uL (0.2-0.9); Monocytes % 9.4 %; Neutrophils # 3.64 10^3/uL (1.8-7.7); Neutrophils % 55.5 %; Nucleated Red Blood Cells % 0 %; Platelet Count 196 10^3/cmm (157-399); Red Blood Count 4.71 10^6/uL (3.85-5.65); White Blood Count 6.57 10^3/uL (3.29-11.43)
[2023-12-20 13:45] LABS: INR 0.95 (0.8-1.2)
[2023-12-20 13:51] LABS: Alanine Aminotransferase 26 U/L (0-41); Albumin Level 4.4 g/dL (3.5-5.2); Alkaline Phosphatase 84 U/L (40-130); Aspartate Amino Transferase 35 U/L (0-40); Blood Urea Nitrogen 10 mg/dL (8-23); Calcium 9.8 mg/dL (8.5-10.5); Carbon Dioxide 23 mmol/L (22-29); Chloride 99 mmol/L (98-107); Creatinine Clr Calc Pharmacy 96.5256; Globulin 3.7 g/dL (1.3-4.6); Glucose 97 mg/dL (65-115); Lipase 51 U/L (13-60); Osmolality Calculated 277 mOsm/kg (285-295); Sodium 134 mmol/L (136-145); Total Bilirubin 0.5 mg/dL (0.15-1.2); Total Protein 8.1 g/dL (6.6-8.7)
[2023-12-20 13:54] LABS: Anion Gap 16.6 (5-19); Potassium 4.6 mmol/L (3.5-5.1); Troponin(5th) Baseline 18 ng/L (0-15)
--- NOTE | 2023-12-20 15:07 | ECG_ITS ---
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 Measurements Intervals [place] Rate: 65 P: 28 CA: 183 QRS: -45 QRSD: 91 T: -6 QT: 388 QTc: 406 Interpretive Statements SINUS RHYTHM LEFT AXIS DEVIATION [QRS AXIS < -30] POSSIBLE ANTERIOR MYOCARDIAL INFARCTION , PROBABLY OLD [30 ms Q WAVE IN V3/V4, OR R < 0.2 mV IN V4] Compared to ECG 12/20/2023 13:05:18 No significant changes Electronically Signed On 12-20-2023 16:28:08 CDT by Jose Oliver M.D. [id number]
[2023-12-20 15:28] VITALS: BP 131/96; PULSE 68; RESP 19; O2SAT 96
[2023-12-20 15:40] LABS: Troponin 5 2HR 16.46 ng/L (0-15)
[2023-12-20 15:41] LABS: Troponin 5 2HR Delta -1.54 ABS# (0-10)
[2023-12-20 15:50] VITALS: BP 144/86; PULSE 70; RESP 17; O2SAT 96
[2023-12-20 16:23] VITALS: BP 144/86; PULSE 67; RESP 17; O2SAT 97
== END 2023-12-20 16:26 | disposition home or self-care (01) ==
PROVIDERS: Emergency Medicine; Emergency Provider Family Medicine; PCP Family Medicine
DX: R07.89 Other chest pain (principal); Z79.01 Long term (current) use of anticoagulants; Z87.891 Personal history of nicotine dependence; I10 Essential (primary) hypertension
CPT/HCPCS: 36415; 71045; 80053; 83690; 84484; 85025; 85610; 93005; 99285

== ENCOUNTER → 2024-01-18 10:23 | Outpatient (BNVA) | payer OTHER, SELFPAY | PROVIDERS: PCP Family Medicine; Visit Provider Nurse Practitioner Family | DX: S50.901A Unspecified superficial injury of right elbow, initial encounter (principal); X58.XXXA Exposure to other specified factors, initial encounter; D48.5 Neoplasm of uncertain behavior of skin; L57.0 Actinic keratosis; D23.39 Other benign neoplasm of skin of other parts of face; Z85.820 Personal history of malignant melanoma of skin; Z85.828 Personal history of other malignant neoplasm of skin | CPT/HCPCS: 11102; 17000; 99213 ==

== ENCOUNTER → 2024-02-01 13:56 | Outpatient (BNVA) | payer OTHER, SELFPAY | PROVIDERS: PCP Family Medicine; Visit Provider Dermatology | DX: C44.622 Squamous cell carcinoma of skin of right upper limb, including shoulder (principal); D48.5 Neoplasm of uncertain behavior of skin; D22.39 Melanocytic nevi of other parts of face; D22.4 Melanocytic nevi of scalp and neck; D69.2 Other nonthrombocytopenic purpura | CPT/HCPCS: 11104; 17262; 99213 ==

== ENCOUNTER 2024-02-15 16:51 | Outpatient (CLI) | payer OTHER, SELFPAY ==
[2024-02-15 17:23] LABS: Basophils # 0.1 10^3/uL (0.0-0.1); Basophils % 0.7 %; Eosinophils # 0.2 10^3/uL (0.0-0.8); Eosinophils % 2.8 %; Hematocrit 44.7 % (37-53); Lymphocytes # 1.7 10^3/uL (0.8-4.8); Mean Corpuscular HGB Conc 32.4 g/dL (30-55); Mean Corpuscular Hemoglobin 32.6 pg (27-33); Mean Corpuscular Volume 100.4 fl (82-101); Monocytes # 0.7 10^3/uL (0.2-0.9); Monocytes % 9.8 %; Neutrophils # 4.56 10^3/uL (1.8-7.7); Neutrophils % 63.3 %; Nucleated Red Blood Cells % 0 %; Platelet Count 253 10^3/cmm (157-399); Red Blood Count 4.45 10^6/uL (3.85-5.65); Red Cell Distribution Width 14.6 % (12.1-15.1); White Blood Count 7.21 10^3/uL (3.29-11.43)
[2024-02-15 18:05] LABS: Alanine Aminotransferase 26 U/L (0-41); Albumin Level 4.3 g/dL (3.5-5.2); Alkaline Phosphatase 75 U/L (40-130); Anion Gap 12.2 (5-19); Aspartate Amino Transferase 33 U/L (0-40); Blood Urea Nitrogen 12 mg/dL (8-23); Calcium 9.7 mg/dL (8.5-10.5); Carbon Dioxide 27 mmol/L (22-29); Chloride 100 mmol/L (98-107); Globulin 3.5 g/dL (1.3-4.6); Glucose 118 mg/dL (65-115); Lactate Dehydrogenase 444 U/L (135-225); Osmolality Calculated 281 mOsm/kg (285-295); Potassium 4.2 mmol/L (3.5-5.1); Sodium 135 mmol/L (136-145); Total Bilirubin 0.4 mg/dL (0.15-1.2); Total Protein 7.8 g/dL (6.6-8.7)
== END 2024-02-15 16:52 | disposition home or self-care (01) ==
LOC: LAB 16:52
PROVIDERS: PCP Family Medicine; Visit Provider Dermatology
DX: C43.4 Malignant melanoma of scalp and neck (principal); R59.0 Localized enlarged lymph nodes; H53.9 Unspecified visual disturbance; D48.5 Neoplasm of uncertain behavior of skin; Z85.820 Personal history of malignant melanoma of skin; L72.0 Epidermal cyst; Z85.828 Personal history of other malignant neoplasm of skin; S50.311A Abrasion of right elbow, initial encounter; X58.XXXA Exposure to other specified factors, initial encounter; L82.1 Other seborrheic keratosis
CPT/HCPCS: 11104; 36415; 80053; 83615; 85025; 99214

== ENCOUNTER 2024-02-23 11:20 | Outpatient (CLI) | payer OTHER, SELFPAY ==
--- NOTE | 2024-02-23 11:28 | CT_ITS ---
WS: [id number] CT HEAD WITH AND WITHOUT CONTRAST HISTORY: ENLARGED LYMPH NODES TECHNIQUE: Noncontrast 3.0 mm axial images obtained from the vertex to the skull base. Additional rohit ging performed at 3.0 mm axial images status post IV contrast. Bone and soft tissue windows are revie wed. All CT scans at [facility] use at least one of these dose optimization techniques: autom ated exposure control; mA and/or kV adjustment per patient size (includes targeted exams where dose i s matched to clinical indication); or iterative reconstruction. CONTRAST: Omnipaque 350; 100 mL IV. DLP: 4492.37 mGy.cm COMPARISON: None available. No acute intracranial hemorrhage, edema or midline shift. Mild atrophy and small vessel disease. Small bilateral lacunar infarcts in the basal ganglia. Moderat e cerebellar atrophy. No mass effect or edema. No sulcal effacement. No enhancing masses are identified by CT. Dural venous sinuses are normally enhancing. Atherosclerotic plaque in the distal vertebral arteries and the intracranial carotid arteries. No occ lusions. Paranasal sinuses as visualized: Clear. Mastoid air cells: Clear. Calvarium and scalp: No destructive bone lesion. 3 mm area of soft tissue thickening towards the post erior LEFT parietal vertex is very nonspecific. There are a few additional similar scattered areas of scalp thickening. Round posterior occipital lymph node on the LEFT measures 7 mm. This lymph node do es appear to enhance. This lymph node is at the level of the foramen magnum. CT/CT head wo/w con [id number] IMPRESSION: 1. No acute intracranial hemorrhage or edema. 2. No enhancing cerebral or cerebellar masses are identified. 3. 3 mm area of soft tissue thickening is marked. This is very nonspecific. Co uld represent a metastatic skin lesion but also may be related to a benign skin lesion. 4. Round, enhancing LEFT posterior occipital lymph node at the level of the fo ramen magnum. Suspicious for metastatic involvement.
--- NOTE | 2024-02-23 11:28 | CT_ITS ---
WS: [id number] CT NECK WITH CONTRAST HISTORY: ENLARGED LYMPH NODES TECHNIQUE: Contiguous 2 mm axial images are performed through the neck with intravenous contrast. Sag ittal and coronal reformats are also submitted. All CT scans at [facility] use at least one o f these dose optimization techniques: automated exposure control; mA and/or kV adjustment per patient size (includes targeted exams where dose is matched to clinical indication); or iterative reconstruc tion. CONTRAST: CONTRAST: Omnipaque 350; 100 mL IV. DLP: 4492.37 mGy.cm COMPARISON: None available. Nasopharynx, oropharynx, hypopharynx and larynx are unremarkable. No soft tissue masses or abnormal e nhancement. Torus tubarius and fossa of Rosenmuller and parapharyngeal fat are normal. Cervical subcentimeter bilateral cervical chain lymph nodes are identified. These lymph nodes are not significantly enlarged. Probably the most concerning lymph node is the enhancing round lymph node me asuring 6 mm in the posterior occipital region at the level of the foramen magnum. There are a few ad ditional smaller level 2 and level 3 lymph nodes with mild enhancement. There is mild enhancement and enlargement of the LEFT lateral rectus muscle measuring 1.6 x 0.7 cm. Thyroid gland and salivary glands are normally enhancing with no masses. Reversal of the normal cervical lordosis. C3 anterolisthesis by 3 mm. Visualized portions of the skull base demonstrate no abnormalities. Orbits and globes are within norm al limits. No soft tissue masses. Visualized paranasal sinuses and mastoid air cells are normal. Lung apices are clear. CT/CT neck w con* [id number] IMPRESSION: 1. Several, bilateral, subcentimeter cervical chain lymph nodes. These lymph n odes are all less than a centimeter. Some of these lymph nodes are more rounded than others with enhancement which does raise suspicion for malignancy. Probab ly the most concerning lymph nodes are in the posterior occipital region. 2. Mild enlargement with enhancement of the LEFT lateral rectus muscle. This c ould possibly represent metastatic disease.
--- NOTE | 2024-02-23 11:28 | CT_ITS ---
WS: [id number] CT CHEST, ABDOMEN AND PELVIS HISTORY: LOCALIZED ENLARGED LYMPH NODES TECHNIQUE: Contiguous 5 mm axial imaging performed through the chest, abdomen and pelvis with IV cont rast, oral contrast has been provided. Coronal and sagittal reformats chest. Coronal and sagittal ref ormats through the abdomen and pelvis. All CT scans at [facility] use at least one of these d ose optimization techniques: automated exposure control; mA and/or kV adjustment per patient size (in cludes targeted exams where dose is matched to clinical indication); or iterative reconstruction. : Omnipaque 350; 100 mL IV. DLP: 4492.37 mGy.cm COMPARISON: 08/17/[address]: No pulmonary nodules or pneumonia identified. There are no masses. No pericardial or pleura l effusions. LEFT axillary necrotic lymph node measures 1.8 x 3.5 cm. This may be 2 lymph nodes together but the c enter is necrotic and there is displacement of the normal fatty hilum. There are a few additional muc h smaller subcutaneous nodules which are suspicious. The remaining nodules are less than a centimeter and in the subcu soft tissues of the thoracic wall extending along the posterior thorax. No mediasti nal or hilar lymph nodes of any significant size. Atherosclerosis aorta. Normal size pulmonary artery . Normal size heart. Cystic mass associated with the LEFT glenohumeral joint is probably a bursal distention. Abdomen CT: Numerous hypoechoic masses with mild peripheral enhancement scattered throughout the live r. These masses are within both the LEFT and RIGHT lobes of the liver. The largest in the RIGHT lobe measures 4.3 x 5.4 cm. Portal vein is still patent. Gallbladder is negative. Normal pancreas. Spleen is normal size but contains a low-attenuation enhancing mass measuring 4.8 x 4.0 cm. There are few ad ditional scattered smaller splenic lesions. Very mild thickening of the LEFT adrenal gland. RIGHT adr enal gland is negative. No renal obstruction. Mild atherosclerosis aorta. Normal stomach. No small bowel obstruction. Normal appendix. No colon obstruction. Moderate diverticu lar disease in the descending and sigmoid colon. No mesenteric or omental lymph nodes are identified. Subcentimeter lymph node adjacent to the IVC. No retroperitoneal adenopathy. 8.3 mm subcutaneous lymph node in the posterior upper abdomen at the level of the L1 vertebral body. There are a few additional smaller lymph nodes posteriorly. Pelvic CT: No ascites. Normal urinary bladder. No inguinal or obturator lymph nodes. Mild degenerative joint disease involving the hips. Advanced degenerative disc disease throughout the thoracic and lumbar spines with a prior fusion in the lumbar spine from L3-S1. Healed fracture of th e inferior RIGHT lateral thorax. CT/CT chest abdpel w/*[id number] IMPRESSION: 1. No pulmonary metastatic disease identified. 2. Numerous metastatic lesions within the liver. The largest measures 4.3 x 5. 4 cm. 3. Splenic mass suspicious for metastatic lesion also measures 4.8 x 4.0 cm. 4. LEFT axillary lymphadenopathy. Necrotic lymph node or 2 adjacent abnormal l ymph nodes in their entirety measuring 1.8 x 3.5 cm. There are a few additional but subcentimeter lymph nodes in the subcutaneous soft tissues of the thorax a nd abdomen which are suspicious. Some of these smaller lymph nodes do enhance. Suspicious rounded lymph node to the RIGHT of the IVC. 5. No ascites. 6. No mesenteric or omental implants identified. 7. Very mild nodularity involving the LEFT adrenal gland. Indeterminate.
[2024-02-23] MEDS: iohexol 350 mg/mL 500 mL Btl (per mL) IV (12:55)
[2024-02-23] MEDS: iohexol 350 mg/mL 500 mL Btl (per mL) PO (12:55)
== END 2024-02-23 11:21 | disposition home or self-care (01) ==
LOC: RAD 11:21
PROVIDERS: PCP Family Medicine; Visit Provider Dermatology
DX: C43.4 Malignant melanoma of scalp and neck (principal); R93.7 Abnormal findings on diagnostic imaging of other parts of musculoskeletal system; G31.9 Degenerative disease of nervous system, unspecified; R93.89 Abnormal findings on diagnostic imaging of other specified body structures; R16.0 Hepatomegaly, not elsewhere classified; R16.1 Splenomegaly, not elsewhere classified; R59.0 Localized enlarged lymph nodes
CPT/HCPCS: 70470; 70491; 71260; 74177

== ENCOUNTER 2024-02-24 07:20 | Oncology outpatient (recurring) (ONCR) | payer OTHER, SELFPAY ==
[2024-02-24 08:14] LABS: Basophils # 0.1 10^3/uL (0.0-0.1); Basophils % 0.8 %; Eosinophils # 0.1 10^3/uL (0.0-0.8); Eosinophils % 1.9 %; Hematocrit 43.3 % (37-53); Lymphocytes # 1.1 10^3/uL (0.8-4.8); Mean Corpuscular HGB Conc 32.3 g/dL (30-55); Mean Corpuscular Hemoglobin 31.3 pg (27-33); Mean Corpuscular Volume 96.7 fl (82-101); Mean Platelet Volume 9.1 fL (7.4-10.4); Monocytes # 0.5 10^3/uL (0.2-0.9); Monocytes % 9.2 %; Neutrophils # 4.12 10^3/uL (1.8-7.7); Neutrophils % 69.8 %; Nucleated Red Blood Cells % 0 %; Platelet Count 224 10^3/cmm (157-399); Red Blood Count 4.48 10^6/uL (3.85-5.65); Red Cell Distribution Width 14.2 % (12.1-15.1)
[2024-02-24 08:53] LABS: Alanine Aminotransferase 25 U/L (0-41); Albumin Level 4.4 g/dL (3.5-5.2); Alkaline Phosphatase 73 U/L (40-130); Anion Gap 11.8 (5-19); Aspartate Amino Transferase 32 U/L (0-40); Blood Urea Nitrogen 12 mg/dL (8-23); Calcium 9.4 mg/dL (8.5-10.5); Carbon Dioxide 27 mmol/L (22-29); Chloride 101 mmol/L (98-107); Creatinine Clr Calc Pharmacy 96.1288; Globulin 3.1 g/dL (1.3-4.6); Glucose 102 mg/dL (65-115); Lactate Dehydrogenase 418 U/L (135-225); Osmolality Calculated 280 mOsm/kg (285-295); Potassium 4.8 mmol/L (3.5-5.1); Sodium 135 mmol/L (136-145); Total Bilirubin 0.5 mg/dL (0.15-1.2); Total Protein 7.5 g/dL (6.6-8.7); Uric Acid 5.2 mg/dL (3.4-7.0)
== END 2024-03-08 23:59 | disposition home or self-care (01) ==
PROVIDERS: PCP Family Medicine; Visit Provider Internal Medicine Hematology & Oncology
DX: C43.4 Malignant melanoma of scalp and neck (principal); C78.7 Secondary malignant neoplasm of liver and intrahepatic bile duct; R59.0 Localized enlarged lymph nodes; Z87.891 Personal history of nicotine dependence
CPT/HCPCS: 36415; 80053; 83615; 84550; 85025; 99204

== ENCOUNTER → 2024-02-27 14:40 | Outpatient (BNVA) | payer OTHER, SELFPAY | PROVIDERS: PCP Family Medicine; Visit Provider Dermatology | DX: C79.89 Secondary malignant neoplasm of other specified sites (principal); R59.0 Localized enlarged lymph nodes; L82.1 Other seborrheic keratosis; Z85.820 Personal history of malignant melanoma of skin; Z85.828 Personal history of other malignant neoplasm of skin | CPT/HCPCS: 99215 ==

== ENCOUNTER → 2024-03-06 10:20 | Outpatient (BNVA) | payer OTHER, SELFPAY | PROVIDERS: PCP Family Medicine; Referring Provider Internal Medicine Hematology & Oncology; Visit Provider Surgery | DX: Z95.828 Presence of other vascular implants and grafts; R03.0 Elevated blood-pressure reading, without diagnosis of hypertension | CPT/HCPCS: 99204 ==

== ENCOUNTER 2024-03-09 05:53 | Day surgery (SDC) | payer OTHER, SELFPAY ==
--- NOTE | 2024-03-09 05:31 | P.HPUD_ITS ---
Surgery/Procedure H&P Update DATE OF PROCEDURE: March 09, 2024 DATE H&P PERFORMED: 03/06/24 H&P UPDATE INFORMATION: I have reviewed H&P completed within last 30 days, I have examined patient prior to procedure, No changes to prior documentation and H&P is in [facility] [place] on date indicated PLANNED PROCEDURE: Operation Date: 03/09/24 07:00 Proposed Procedures p Portacath Placement 26339, C43.4, Z95.828(Not Applicable) - Bam Franklin MD
--- NOTE | 2024-03-09 05:59 | SC_ITS ---
WS: [id number] C-arm fluoroscopy for insertion of right infusion catheter, 03/09/2024 Clinical Data: port-a-cath placement Comparison: Portable chest, 12/20/2023 Findings: Dr. Franklin inserted a right infusion port via the internal jugular vein. It ends at the caval atr ial junction. SC/C-arm FL for CVA 63426 Impression: Insertion of right infusion catheter.
[2024-03-09 06:10] VITALS: BP 141/98; PULSE 87; RESP 16; TEMP 36.3; O2SAT 99; BMI 34.8
[2024-03-09] MEDS: sodium chloride 0.9% 1,000 ML 30 ML IV (06:24)
--- NOTE | 2024-03-09 06:45 | P.ANESASSM_ITS ---
Pre-Anesthetic Assessment Height/Weight: Height 1.78 m Weight 110.223 kg Temp Pulse Resp BP Pulse Ox O2 Del Method 97.4 F L 87 16 141/98 99 Room Air 03/09/24 06:10 03/09/24 06:10 03/09/24 06:10 03/09/24 06:10 03/09/24 06:10 03/09/24 06:10 Operation Date: 03/09/24 07:00 Proposed Procedures p Portacath Placement 15555, C43.4, Z95.828(Not Applicable) - Bam Franklin MD Familial anesthetic complications: None Was Beta Libertad taken within 24 hours: Yes Was Clonidine taken within 24 hours: N/A Last intake: Intake Last Liquid Date 03/08/24 Last Liquid Time 18:00 Last Solid Date 03/08/24 Last Solid Time 18:00 Social No alcohol and No tobacco former smoker Exam alert, oriented x 3, clear to auscultation bilaterally and regular rate & rhythm Airway Mallampati: Class III Dentition: other (permanent bridges, implants, ( Lots of dental work )) CV/HEM Deep Vein Thrombosis (PE on eliquis - holding since tuesday) and Hypertension Metabolic Thyroid Disease Musc/skel melanoma Anesthetic Plan ASA status: 3 Anesthesia: MAC Risk of > 500 ml blood loss (7ml/kg in children): No Medications/Allergies Home Medications Medication Instructions Recorded Confirmed Last Taken Type Custom Orthotics #1 ea 01/07/20 03/06/24 Unknown Rx apixaban 2.5 mg tablet (Eliquis) 2.5 mg PO BID 01/07/20 03/09/24 03/07/24 History atenolol 50 mg tablet 50 mg PO DAILY 01/07/20 03/09/24 03/08/24 History Fiber (psyllium husk) 1 tab PO DAILY 08/17/20 03/09/24 03/08/24 History Power Beets 1 tab PO DAILY 08/17/20 03/09/24 03/08/24 History ascorbic acid 125 mg-collagen, 1 cap PO DAILY 08/17/20 03/09/24 03/08/24 History hydrolyzed 740 mg capsule (Collagen Plus Vitamin C) garlic 2,000 mg PO DAILY 08/17/20 03/09/24 03/08/24 History levothyroxine 75 mcg tablet 75 mcg PO DAILY 08/17/20 03/09/24 03/08/24 History cefpodoxime 200 mg tablet 200 mg PO BID 7 days #14 tabs 02/15/23 03/09/24 03/08/24 Rx turmeric 100 mg-harvey 150 1 cap PO DAILY 02/15/23 03/09/24 03/08/24 History mg-olive 50 mg-oreg 150 mg-capryl capsule lorazepam 1 mg tablet 0.5 - 1 mg (0.5 - 1 x 1 mg) PO Q6H 02/24/24 03/09/24 Unknown Rx PRN severe nausea #30 tabs prochlorperazine maleate 10 mg 10 mg PO Q4H PRN mild nausea #30 02/24/24 03/09/24 Unknown Rx tablet (Compazine) tabs Allergies Allergy/AdvReac Type Severity Reaction Status Date / Time No Known Allergies Allergy Verified 03/09/24 06:02 Current Medications Generic Name Dose Route Start Last Admin Trade Name Freq PRN Reason Stop Dose Admin Sodium Chloride 1,000 mls @ 30 mls/hr 03/09/24 06:00 03/09/24 06:24 Sodium Chloride 0.9% IV 03/10/24 05:59 30 mls/hr .Q24H SAHARA Administration PFSH Anesthesia Medical History History of pulmonary embolism Diverticulosis Colon polyps bleeding polyp removed during a colonoscopy in [place], [place] Degenerative joint disease History of skin cancer Melanoma -- left shoulder Chronic back pain Hypothyroidism Hypertension History of blood clots DVT Left LE / PE Surgical History History of colonoscopy Last 09/2016 -- diverticulosis History of umbilical hernia repair Skin cancer (melanoma) Excised from left shoulder History of total knee arthroplasty Bilateral History of lumbar laminectomy x 1 Family History Denies family history of Anesthesia complication Bleeding disorder Social History Smoking and tobacco/nicotine status: former use of tobacco/nicotine Quit status (tobacco/nicotine): has quit using Year quit tobacco: 1989 Alcohol intake: never Substance/Drug Use: never Lives independently: Yes Current occupational status: retired Data Anesthesia Cardiac Studies: No Data to Display
[2024-03-09] MEDS: ceFAZolin 2,000 mg SDV 2000 MG IVP (07:24)
[2024-03-09] MEDS: lidocaine-epi 1% 20 mL INJ INJECTION (07:33)
[2024-03-09] MEDS: heparin, porcine 1,000 unit/mL INJ 10 mL 6000 UNIT IRRIGATION (07:34)
--- NOTE | 2024-03-09 07:51 | P.OP_ITS ---
Operative Report Date of procedure: March 09, 2024 Pre-op diagnosis: Metastatic melanoma. Post-op diagnosis: Same Post-op findings: Normal vascular anatomy Procedure done: Insertion of Port-A-Cath right IJ Implants: Bard Port-A-Cath Specimens removed/disposition: None Surgeon: Bam Franklin MD Fitness Management Director: NAJMA OR STaff Estimated blood loss: 5 Complications: none apparent Brief History: 78-year-old male with metastatic melanoma, presents to my office for evaluation for Port-A-Cath placement to initiate chemotherapy. After discussion of all risk benefits documented my preop note with side to proceed. Procedure: Patient was brought into the OR, he was placed in a supine position, mother anesthesia sedation was given. Timeout was conducted after the skin was prepped and draped in the usual sterile fashion. I then proceeded to identify the right IJ vein with ultrasound, I infiltrated local anesthesia on top of the vein. I then proceeded to cannulate the vein under direct ultrasound guidance using an 18-gauge needle, the needle tip was seen entering the vein and immediate return of blood was noted. A wire was advanced through the needle and the needle was removed. The position of the wire was verified with ultrasound and fluoroscopy. The wire was then fixed to the drapes. I then placed my attention to the chest, local anesthesia was infiltrated in the previously marked area on the chest and then a tract connecting the chest to the wire insertion site in the neck. I then proceeded to make a 3.5 cm incision in the right upper chest, the incision was deepened to subcutaneous tissue with electrocautery and electrocautery was used to create the subcutaneous pocket to house the Port-A-Cath. I then proceeded to use a hemostat to create a tunnel from the chest wound to the neck. I then proceeded to make a 0.5 cm incision at the level of the wire insertion site in the neck. Hemostasis was verified. I then placed the Port-A-Cath in the pocket and tunneled the catheter using the provided tunneler. The catheter was cut to appropriate length under fluoroscopy guidance and then flushed. I then proceeded to insert an introducer with a peel-off sheath over the wire under direct fluoroscopic guidance. I then remove the wire and the introducer leaving the peel-off sheath in place. The catheter was then advanced through the peel-off sheath and the peel-off sheath was removed leaving the catheter in place. Fluoroscopy showed evidence of Adequate catheter position. I then proceeded to access the port; the port was retrieving blood and flushing fine, I then hep-locked the catheter. Hemostasis was verified. The wound was closed in layers using #3-0 Vicryl for the subcutaneous tissue and #4 Monocryl for the skin. Dermabond was applied. At the end of the procedure all counts were correct. The patient tolerated well the procedure and was transferred to the PACU in stable condition.
[2024-03-09 08:03] VITALS: BP 115/88; PULSE 91; RESP 16; TEMP 36.2; O2SAT 96
[2024-03-09 08:08] VITALS: BP 123/83; PULSE 81; RESP 16; O2SAT 96
[2024-03-09 08:13] VITALS: BP 115/79; PULSE 80; RESP 16; TEMP 36.4; O2SAT 95
[2024-03-09 08:20] VITALS: BP 130/87; PULSE 84; RESP 18; TEMP 36.4; O2SAT 96
[2024-03-09 08:43] VITALS: BP 132/91; PULSE 78; RESP 18; O2SAT 95
--- NOTE | 2024-03-09 08:45 | ANE.PACU2 ---
Inpatient post-anesthesia follow up: Airway intact: Yes Vital signs: Temperature 97.6 F Pulse Rate 78 Respiratory Rate 18 Blood Pressure 132/91 Pulse Oximetry 95 Oxygen Delivery Me thod Room Air Oxygen Flow Rate Fraction of Inspir ed Oxygen Hydration adequate: Yes Nausea and vomiting: No Pain level: 1 Mental status: Baseline
== END 2024-03-09 08:48 | disposition home or self-care (01) ==
PROVIDERS: PCP Family Medicine; Visit Provider Surgery
PROC: (CPT 36561; principal; 2024-03-09 07:00)
DX: C43.4 Malignant melanoma of scalp and neck (principal); Z86.711 Personal history of pulmonary embolism; E03.9 Hypothyroidism, unspecified; I10 Essential (primary) hypertension; Z86.718 Personal history of other venous thrombosis and embolism; Z87.891 Personal history of nicotine dependence; Z79.01 Long term (current) use of anticoagulants
CPT/HCPCS: 36561; 76000; 77001; C1788; J0690; J1644; J2704; J3010; J7030

== ENCOUNTER → 2024-03-29 13:34 | Outpatient (BNVA) | payer OTHER, SELFPAY | PROVIDERS: PCP Family Medicine; Visit Provider Dermatology | DX: C79.89 Secondary malignant neoplasm of other specified sites (principal); R59.0 Localized enlarged lymph nodes; Z85.820 Personal history of malignant melanoma of skin; Z85.828 Personal history of other malignant neoplasm of skin | CPT/HCPCS: 99215 ==

== ENCOUNTER → 2024-06-07 13:27 | Outpatient (BNVA) | payer OTHER, SELFPAY | PROVIDERS: PCP Family Medicine; Visit Provider Dermatology | DX: C79.89 Secondary malignant neoplasm of other specified sites (principal); L82.1 Other seborrheic keratosis; R59.0 Localized enlarged lymph nodes; Z85.820 Personal history of malignant melanoma of skin; Z08 Encounter for follow-up examination after completed treatment for malignant neoplasm; Z85.828 Personal history of other malignant neoplasm of skin; D48.5 Neoplasm of uncertain behavior of skin; L57.0 Actinic keratosis | CPT/HCPCS: 11102; 17000; 99213 ==

== ENCOUNTER → 2024-07-17 10:00 | Outpatient (BNVA) | payer OTHER, SELFPAY | PROVIDERS: PCP Family Medicine; Visit Provider Nurse Practitioner Family | DX: C79.89 Secondary malignant neoplasm of other specified sites (principal); Z85.820 Personal history of malignant melanoma of skin; Z08 Encounter for follow-up examination after completed treatment for malignant neoplasm; Z85.828 Personal history of other malignant neoplasm of skin; L82.0 Inflamed seborrheic keratosis; L53.8 Other specified erythematous conditions; L29.89 Other pruritus | CPT/HCPCS: 17110; 99213 ==

== ENCOUNTER → 2024-09-04 14:14 | Outpatient (BNVA) | payer OTHER, SELFPAY | PROVIDERS: PCP Family Medicine; Visit Provider Dermatology | DX: C79.89 Secondary malignant neoplasm of other specified sites (principal); L72.0 Epidermal cyst; L82.1 Other seborrheic keratosis; D69.2 Other nonthrombocytopenic purpura; L57.8 Other skin changes due to chronic exposure to nonionizing radiation; Z85.820 Personal history of malignant melanoma of skin; Z08 Encounter for follow-up examination after completed treatment for malignant neoplasm; Z85.828 Personal history of other malignant neoplasm of skin | CPT/HCPCS: 99213 ==

== ENCOUNTER → 2024-12-03 09:20 | Outpatient (BNVA) | payer OTHER, SELFPAY | PROVIDERS: PCP Family Medicine; Visit Provider Dermatology | DX: C79.89 Secondary malignant neoplasm of other specified sites (principal); L72.0 Epidermal cyst; L82.1 Other seborrheic keratosis; L80 Vitiligo; Z85.820 Personal history of malignant melanoma of skin; Z08 Encounter for follow-up examination after completed treatment for malignant neoplasm; Z85.828 Personal history of other malignant neoplasm of skin | CPT/HCPCS: 99213 ==